=== PATIENT | female | born 1975 | race Caucasian/White ===

== ENCOUNTER 2018-07-30 03:45 | Observation (INO) ==
[2018-07-30] MEDS ORDERED: Aspirin 81 MG TAB.CHEW PO STA (05:02)
--- NOTE | 2018-07-30 05:03 | Emergency Department Note ---
Disposition Clinical Impression: Tobacco abuse Chest pain Qualifiers: Chest pain type: unspecified Qualified Code(s): R07.9 - Chest pain, unspecified HTN (hypertension) Qualifiers: Hypertension type: essential hypertension Qualified Code(s): I10 - Essential (primary) hypertension Disposition: Admitted As Inpatient Condition: Good Time of Disposition: 05:45 General Adult HPI - General Chief complaint: ED Chest Pain Stated complaint: admit/AMA earlier Time Seen by Provider: 07/30/18 04:39 Source: patient Limitations: no limitations Nursing Notes Reviewed: Yes Vital Signs Reviewed: Yes - History of Present Illness HPI Narrative: 43-year-old female who presents emergency department with complaints of chest tightness. She was seen earlier in this emergency department for similar complaints and was told that she would benefit from admission for further cardiac evaluation but she left AGAINST MEDICAL ADVICE. She was then sent to long term where she continued to have the chest tightness and therefore requested return to the emergency department. The patient has never had any cardiac disease previously but she does have a history of smoking, hypertension, diabetes. Patient denies any significant shortness of breath, vomiting, hematemesis, weight loss, abdominal pain, back pain, headache, visual changes. Pain Scale: 5 - Related Data Allergies Allergy/AdvReac Type Severity Reaction Status Date / Time Penicillins Allergy See Verified 07/29/18 21:08 Comments sulfamethoxazole Allergy See Verified 07/29/18 21:08 [From Bactrim] Comments trimethoprim [From Bactrim] Allergy See Verified 07/29/18 21:08 Comments steroids Allergy See Uncoded 07/29/18 21:08 Comments Review of Systems: ROS per history of present illness, all other systems reviewed and negative or normal. All systems ED: reviewed and negative except as stated. Review of Systems: As Per HPI Past Medical History - Past Medical History Medical history: Reports: diabetes, hypertension Psychiatric history: Reports: anxiety - Social History Smoking Status: Current every day smoker Smokeless Tobacco Status: No Alcohol use: Reports: none Drug use: Reports: none Physical Exam General: Conversant. No apparent distress. Follow commands. Appears stated age. Neck: No JVD. Trachea midline. Neck supple. Eyes: PERRL. No scleral icterus. HENT: Normocephalic and atraumatic. Moist mucus membranes. Cardiovascular: Regular rate and rhythm. Normal S1 and S2. No murmurs appreciated. Normal capillary refill. Extremities well perfused with 2+ distal pulses bilaterally. No edema. Pulmonary: Normal and equal breath sounds bilaterally, anteriorly and posteriorly. No wheezes, rales, or rhonchi. Not in respiratory distress. Speaks in full sentences. Abdomen: Soft, nondistended, and tontender. No bruits or masses. No guarding. Neuro: Alert and oriented x3. No slurred speech. No focal deficits noted. Skin: No rashes noted on visualized skin. Musculoskeletal: No bony abnormalities visualized. Moves all extremities. Psych: Normal mood. Pleasant. Makes appropriate eye contact. - General Limitations: no limitations General appearance: alert Course Vital Signs Temperature 96 F L 07/30/18 04:40 Pulse Rate 58 07/30/18 04:40 Respiratory Rate 18 07/30/18 04:40 Blood Pressure 146/66 07/30/18 04:40 O2 Sat by Pulse Oximetry 100 07/30/18 04:40 Temperature 96 F L 07/30/18 04:40 Pulse Rate 58 07/30/18 04:40 Respiratory Rate 18 07/30/18 04:40 Blood Pressure 146/66 07/30/18 04:40 O2 Sat by Pulse Oximetry 100 07/30/18 04:40 Oxygen Delivery Oxygen Delivery Room Air Medical Decision Making - MDM Narrative Medical decision making narrative: 43-year-old female with history of hypertension, diabetes and smoking who presents the emergency department for reevaluation of her chest pain. She was s een for this earlier less than 12 hours ago in this emergency department and at that time was recommended admission. At that point she climbed and left AGAINST MEDICAL ADVICE. She came back as her symptoms persisted with chest tightness. Given the patient has poor follow-up, increased risk factors and ongoing chest pain did evaluate with EKG and repeat troponin. EKG shows normal sinus rhythm w ithout acute ischemic changes when compared with prior. Troponin less than 0.03. At this point the patient is willing to stay for further ACS evaluation. Discussed case with on-call hospitalist Dr. Mcgowan who agrees with plan for admission and accepts the patient to the inpatient service. Patient agrees with and understands course of treatment plan including plan for admission. All questions answered. - Medical Records Medical records reviewed: Yes I reviewed the patient's medical records. - Lab Data Lab results reviewed: Yes I reviewed the patient's lab results. Lab Results 07/30/18 Range/Units 05:02 Troponin I < 0.03 (< 0.04) ng/mL - Radiology Data Radiology results reviewed: Yes I reviewed the patient's radiology results. - EKG Data EKG #1 EKG attestation: Yes I reviewed and interpreted this EKG. EKG results narrative: Normal sinus rhythm rate of 61. Normal axis. Normal intervals. No acute ischemic ST or T-wave abnormalities. When compared with prior from 07/29/18 at 2233 there are no significant changes.
--- NOTE | 2018-07-30 05:57 | Emergency Department Note ---
Disposition Clinical Impression: Tobacco abuse Chest pain Qualifiers: Chest pain type: unspecified Qualified Code(s): R07.9 - Chest pain, unspecified HTN (hypertension) Qualifiers: Hypertension type: essential hypertension Qualified Code(s): I10 - Essential (primary) hypertension Disposition: Admitted As Inpatient Condition: Good Time of Disposition: 05:45 General Adult HPI - General Chief complaint: ED Chest Pain Stated complaint: admit/AMA earlier Time Seen by Provider: 07/30/18 04:39 Source: patient Limitations: no limitations Nursing Notes Reviewed: Yes Vital Signs Reviewed: Yes - History of Present Illness Pain Scale: 5 - Related Data Allergies Allergy/AdvReac Type Severity Reaction Status Date / Time Penicillins Allergy See Verified 07/29/18 21:08 Comments sulfamethoxazole Allergy See Verified 07/29/18 21:08 [From Bactrim] Comments trimethoprim [From Bactrim] Allergy See Verified 07/29/18 21:08 Comments steroids Allergy See Uncoded 07/29/18 21:08 Comments Past Medical History - Past Medical History Medical history: Reports: diabetes, hypertension Psychiatric history: Reports: anxiety - Social History Smoking Status: Current every day smoker Smokeless Tobacco Status: No Alcohol use: Reports: none Drug use: Reports: none Physical Exam - General Limitations: no limitations General appearance: alert Course Vital Signs Temperature 96 F L 07/30/18 04:40 Pulse Rate 58 07/30/18 04:40 Respiratory Rate 18 07/30/18 04:40 Blood Pressure 146/66 07/30/18 04:40 O2 Sat by Pulse Oximetry 100 07/30/18 04:40 Temperature 97.9 F 07/30/18 06:37 Pulse Rate 61 07/30/18 06:37 Respiratory Rate 16 07/30/18 06:37 Blood Pressure 131/68 07/30/18 06:37 O2 Sat by Pulse Oximetry 99 07/30/18 06:37 Oxygen Delivery Oxygen Delivery Room Air Medical Decision Making - Medical Records Medical records reviewed: Yes I reviewed the patient's medical records. - Lab Data Lab results reviewed: Yes I reviewed the patient's lab results. Lab Results 07/30/18 Range/Units 05:02 Troponin I < 0.03 (< 0.04) ng/mL - EKG Data EKG #1 EKG attestation: Yes I reviewed and interpreted this EKG. EKG results narrative: EKG shows a normal sinus rhythm with ventricular rate of 61. No significant ST segment elevation or depression. No arrhythmia or ectopy. Normal EKG. Attestation Statement - Attestation Attestation: I, Brian Fitzgerald MD, personally evaluated this patient and discussed their management with the resident physician. I reviewed the resident's note and agree with the documented findings, medical decision making, and plan of care. I reviewed the residents documentation and agree with the residents assessment and plan of care. I have personally had face to face time with the patient. I personally supervised and was present for the capps/critical portions of the following procedures completed by the resident: EKG interpretation. 43-year-old female persisted emergency department with complaint of mid substernal chest pressure which started about 12 hours prior to arrival. Patient was seen here in the emergency department last evening for the same complaint. She had a workup at that time with a negative troponin. They recommended hospital admission but patient refused and left AMA. She returns now stating that the pain just will not go away. It has not gotten worse. She is diabetic and has a history of hypertension. On examination patient is a well-developed well-nourished well-appearing female in no acute distress. She is alert and oriented 3. There is no cyanosis or diaphoresis. Chest is nontender to palpation. Breath sounds are clear and equal bilaterally. Heart regular rate and rhythm. Abdomen soft and nontender with normal bowel sounds. EKG shows a normal sinus rhythm with ventricular rate of 61. No significant ST segment elevation or depression. No arrhythmia or ectopy. Normal EKG. troponin normal. The hospitalist, Dr. Mcgowan, was consulted and accepted admission of the p [facility].
[2018-07-30] MEDS ORDERED: Nitroglycerin 0.4 MG TAB.SUBL SL PRN (07:24)
--- NOTE | 2018-07-30 07:44 | Internal Med History&Physical ---
Date of Encounter: 07/30/18 Time of Encounter: 07:38 Internal Medicine - H&P: HPI Chief complaint: chest pain Admitted From: Home Plans for Post Hospital Care: Home History of present illness: Ms. Landry is a 43 year old female who has history of hypertension diabetes and tobacco abuse presenting emergency room for chest pain. Chest pain started 12 hours ago, located to left chest, pressure-like, 4 out of 10, last for 10 minutes associated with sweating. She denies palpation dizziness shortness of breath, no radiations. The chest pain is nonexertional. Patient was offered admission yesterday but she left AMA and she came back to having persistent chest pain, patient agrees to stay for chest pain workup. He emergency room she had lab study done which showed anemia, negative troponin, negative chest x-ray, EKG did not show any ST elevation or depression. Patient does have risk factor for hypertension diabetes tobacco abuse, no family history of premature CAD. Patient is going to be admitted for stress test, echocardiogram follow-up serous troponin EKG. Also she has significant microcytic anemia, we will do anemia workup check iron studies, B12 folic acid and stool occult blood. Past Med Surg Social Fam HX - Past Medical History Medical history: diabetes, hypertension Psychiatric history: anxiety - Past Surgical History Surgical History: Additional surgical history: throat surgery - Social History Smoking Status: Current every day smoker Packs per day: 1/2 Smokeless Tobacco Status: No Alcohol use: none Drug use: none Internal Medicine - H&P: Meds Insulin ASPART [Novolog Flexpen] 100 unit SQ 07/30/18 [History] Lisinopril [Zestril] 20 mg PO DAILY 07/30/18 [History] Allergy/AdvReac Type Severity Reaction Status Date / Time Penicillins Allergy See Verified 07/29/18 21:08 Comments sulfamethoxazole Allergy See Verified 07/29/18 21:08 [From Bactrim] Comments trimethoprim [From Bactrim] Allergy See Verified 07/29/18 21:08 Comments steroids Allergy See Uncoded 07/29/18 21:08 Comments All Systems PM: A 10-system review of systems was performed and is negative for pertinent findings except as documented above in the HPI. - Constitutional Vitals: Temp Pulse Resp BP Pulse Ox 97.9 F 61 16 131/68 99 07/30/18 06:37 07/30/18 06:37 07/30/18 06:37 07/30/18 06:37 07/30/18 06:37 General appearance: Present: A&O X 3, pleasant, answers questions appropriately Exam: CONSTITUTIONAL: Patient appears as an age appropriate female well developed, in no acute distress. EYES Clear sclerae, bilateral pupils are equal, reactive to light and accommodation. Extraocular movements are intact RESPIRATORY: No accessory muscle use, bilateral reduced breath sounds to auscultation, no wheezing, no crackles/rales. CARDIOVASCULAR: Regular heart rate, normal S1 and S2, no murmurs GASTROINTESTINAL: bowel sounds present, soft, no tenderness. No h epatosplenomegaly. No bilateral CVA tenderness MUSCULOSKELETAL: Joints in normal range of motion, no clubbing, no edema, no cyanosis. Bilateral peripheral pulses 2+ LYMPHATIC no lymphadenopathy in neck, groin and axilla bilaterally, no thyromegaly. NEUROLOGIC: CN II to XII are grossly intact, no focal neurological deficit. Deep tendon reflexes 2+ bilaterally. Normal light touch sensation to upper and lower extremity PSYCHIATRIC: Oriented x3, with good insight, mood is euthymic. No hallucinations or delusions. SKIN: Skin warm and dry, no rashes, no open wound. Internal Med - H&P Results - Labs Labs: Cardiac Enzymes 07/30/18 Range/Units 05:02 Troponin I < 0.03 (< 0.04) ng/mL - Summary of Assessment and Plan Summary of Assessment and Plan: This is a 43 year old female who has history of hypertension diabetes tobacco abuse presenting emergency room for on and off left-sided chest pressure over last 12 hours, she had her first negative troponin negative EKG chest x-ray. Patient's chest pain is not exertional we will admit for chest pain workup. Due to multiple risk factors 1. chest pain atypical, but due to multiple risk factors, will follow up trop EKG, check TTE and stress test, check lipids and A1c, continue aspirin, when necessary nitroglycerin, check D-dimer to r/o PE 2 hypertension continue lisinopril 20 mg once daily, clonidine 0.1 tid 3 insulin-dependent diabetes we will check A1c place insulin sliding scale 4 tobacco dependent smoking cessation discussed patient declined a nicotine patch 5. Severe microcytic anemia will check iron studies, B12 and folic acid stool ocular brother test 6. DVT prophylasix heparin SC - Time Spent With Patient Total time spent is greater than 50% in coordination of care (as documented) at patient's floor/unit and/or counseling patient: Greater than 35 minutes
--- NOTE | 2018-07-30 08:13 | Electrocardiograph Report ---
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
[2018-07-30 08:22] LABS: % Iron Saturation 4 % (15-50); Iron 15 mcg/dL (50-170); Transferrin 262 mg/dL (203-362); Troponin I < 0.03 ng/mL (< 0.04)
[2018-07-30] MEDS: Lisinopril 20 MG TABLET PO SCH (09:19)
[2018-07-30] MEDS: cloNIDine HCl 0.1 MG TABLET PO SCH ×3 (09:19→21:01)
[2018-07-30] MEDS: Aspirin 81 MG TAB.CHEW PO SCH (09:19)
[2018-07-30] MEDS: *HR* Heparin 5,000 UNIT/ML VIAL SQ SCH ×2 (12:23→21:05)
[2018-07-30] MEDS: Insulin LISPRO 300 UNITS/3 ML VIAL SQ SCH ×2 (12:32→17:35)
[2018-07-30] MEDS ORDERED: Dextrose Gel 15 GM/37.5 ML TUBE PO PRN ×2 (14:37)
[2018-07-30] MEDS ORDERED: *HR* Dextrose 50 % in Water (Syg) 50 ML SYRINGE IVP PRN (14:37)
[2018-07-30] MEDS ORDERED: D5% in Water 1,000 ML IVC PRN (14:37)
[2018-07-30] MEDS ORDERED: Acetaminophen 325 MG TABLET PO ONE (21:29)
[2018-07-31] MEDS: Insulin LISPRO 300 UNITS/3 ML VIAL SQ SCH ×3 (00:50→17:03)
--- NOTE | 2018-07-31 05:04 | Event Note ---
Date of Encounter: 07/30/18 Time of Encounter: 21:00 Alerted by patient's nurse the patient was nothing by mouth and was unsure why. Reviewed patient's chart to find her stress test results from today which showed although submaximal HR achieved for abnormal ECG changes (1-[address] depression) in the inferior and lateral leads suggestive of ischemia at the level of HR attained (71%). Page Dr. Elise who was front office representative for Cardiology and discussed this pt. w/recommendation to allow the pt. to eat now and keep NPO at midnight for possible heart catheterization in the a.m. No Cardiology consult placed, so Cardiology consult ordered and confirmed w/Dr. Elise via [employer]. I appreciate the recommendations and consult as always. Nurse instructed to continue monitoring this pt. very closely and alert me immediately of any adverse changes. NPO ordered for midnight.
[2018-07-31] MEDS: *HR* Heparin 5,000 UNIT/ML VIAL SQ SCH ×2 (05:11→17:03)
[2018-07-31 07:55] LABS: Prothrombin Time 11.2 Seconds (9.4-12.1)
[2018-07-31 08:06] LABS: Albumin 3.4 g/dL (3.5-5.7); Albumin/Globulin Ratio 1.1 (1.1-2.2); Bilirubin,Indirect 0.2 mg/dL (0.0-1.2); Bilirubin,Total 0.2 mg/dL (0.3-1.0); Chol/HDL Ratio 4.5 (0-4.9); Total Protein 6.4 g/dL (6.4-8.9)
[2018-07-31 08:19] LABS: Estimated Average Glucose 229 mg/dl; Hemoglobin A1C 9.6 %
[2018-07-31 08:27] LABS: Folate 14.5 ng/mL (3.0-16.0)
[2018-07-31 08:31] LABS: Basophils % 0.3 %
[2018-07-31 08:33] LABS: Alanine Aminotransferase 10 Units/L (7-52); Albumin 3.2 g/dL (3.5-5.7); Aspartate Amino Transferase 15 Units/L (13-39); BUN/Creatinine Ratio 18 (6-26); Bilirubin,Total 0.1 mg/dL (0.3-1.0); Blood Urea Nitrogen 18 mg/dL (6-20); Carbon Dioxide 22 mEq/L (23-29); Chloride 110 mEq/L (98-107); Globulin 3.1 g/dL (2.4-3.5); Glucose 175 mg/dL (70-105); Magnesium 2.2 mg/dL (1.6-2.6); Osmolality,Calculated 298 (280-300); Potassium 4.5 mEq/L (3.5-5.1); Sodium 141 mEq/L (136-145); Total Protein 6.3 g/dL (6.4-8.9); eGFR For African Americans > 60 (> 60); eGFR For Non-African Americans > 60 (> 60)
[2018-07-31 08:34] LABS: Eosinophils # 0.1 K/mcL (0.0-0.6); Eosinophils % 1.1 %; Hematocrit 30.8 % (35.3-44.9); Hemoglobin 8.8 g/dL (11.5-15.4); Immature Granulocytes % 0.2 % (0-4); Immature Platelets 8.4 % (1.1-6.1); Lymphocytes % 30.9 %; Mean Corpuscular HGB Conc 28.6 g/dL (31.6-35.5); Mean Corpuscular Hemoglobin 22.9 pg (28.0-33.3); Mean Platelet Volume 11.8 fL (9.4-12.4); Monocytes # 0.5 K/mcL (0.0-1.3); Monocytes % 7.8 %; Neutrophils # 3.9 K/mcL (1.6-8.9); Platelet Count 219 K/mcL (140-400); Red Blood Count 3.85 M/mcL (3.82-4.97); Red Cell Distribution Width 18.7 % (11.5-14.5); Segmented Neutrophils % 59.7 %; White Blood Count 6.5 K/mcL (4.3-11.1)
[2018-07-31 08:38] LABS: Anisocytosis 1+ (Not Present); Calcium 8.7 mg/dL (8.6-10.3); Platelet Clumps Few (Not Present); Platelet Estimate Normal (Normal)
[2018-07-31 08:39] LABS: Alkaline Phosphatase 80 Units/L (34-104)
--- NOTE | 2018-07-31 09:54 | Cardiology Consult Note ---
Date of Encounter: 07/31/18 Time of Encounter: 09:51 Assessment and Plan (1) Abnormal stress electrocardiogram test Status: Acute Patient with risk factors for coronary artery disease namely cigarette smoking and diabetes, with equivocal exercise stress test, obtain pharmacological nuclear stress test. If negative patient may be discharged to follow up with cardiology as outpatient (2) Chest pain Status: Acute Resolved. Obtain pharmacological nuclear stress test today Qualifiers: Chest pain type: unspecified Qualified Code(s): R07.9 - Chest pain, unspecified (3) Hypertension Status: Acute Continue lisinopril and clonidine. We will replace clonidine with first-line antihypertensive in the outpatient setting. Qualifiers: Hypertension type: essential hypertension Qualified Code(s): I10 - Essential (primary) hypertension (4) Tobacco abuse Status: Acute Encouraged to quit smoking Discussion w patient/family: The assessment and plan as outlined above was discussed with the patient and/or family members who expressed understanding and agreement. All questions were answered. Thank you for involving us in the care of your patient. Please call with any questions. History of Present Illness Consult date: 07/31/18 History of present illness: Ms. Landry is a 43 year old female with history of hypertension, diabetes and tobacco abuse, microcytic anemia, admitted for a non exertional, non radiating left sided chest pain described as pressure-like, 4 out of 10, last for 10 minutes associated with sweating. She denies palpitation or shortness of breath, no radiations. She received exercise stress test yesterday which was suboptimal due to inability to achieve target heart rate. However there were 1- [address] T depressions with exercise. Past Med Surg Social Fam HX - Past Medical History Medical history: diabetes, hypertension Psychiatric history: anxiety - Past Surgical History Surgical History: Additional surgical history: throat surgery - Social History Smoking Status: Current every day smoker Packs per day: 1/2 Smokeless Tobacco Status: No Alcohol use: none Drug use: none Medications and Allergies Clonidine TID 07/30/18 [History] Insulin ASPART [Novolog Flexpen] 0 unit SQ TIDWM 07/30/18 [History] Lisinopril [Zestril] 20 mg PO DAILY 07/30/18 [History] Allergy/AdvReac Type Severity Reaction Status Date / Time Penicillins Allergy See Verified 07/29/18 21:08 Comments sulfamethoxazole Allergy See Verified 07/29/18 21:08 [From Bactrim] Comments trimethoprim [From Bactrim] Allergy See Verified 07/29/18 21:08 Comments steroids Allergy See Uncoded 07/29/18 21:08 Comments All Systems Review: The remainder of the systems were reviewed and are negative - Constitutional Constitutional: no anorexia - EENT Eyes: no blurred vision - Cardiovascular Cardiovascular: as per HPI, chest pain at rest, no chest pain with exertion, no claudication, no palpitations, no syncope - Respiratory Respiratory: no cough - Gastrointestinal Gastrointestinal: no abdominal pain - Musculoskeletal Musculoskeletal: no muscle weakness - Integumentary Integumentary: no unusual bruising - Neurological Neurological: no abnormal speech - Hematological/Lymphatic Hematologic/Lymphatic: no easy bleeding Physical Examination Vital Signs, Last 4 Hours Temp Pulse Resp BP Pulse Ox 07/31/18 06:45 98.1 F 64 15 129/61 97 General: Conversant HEENT: Atraumatic Neck: No JVD Cardiac: Reg Rate and Rhythm, Normal S1 and S2, No Murmur Lungs: Normal Breath Sounds, No Wheeze, Rales, Rhonchi Neuro: Alert and responsive, No focal deficits noted Abdomen: Soft Extremities: No Edema Results 07/31/18 06:56 07/31/18 06:56 Lab Results 07/30/18 07/30/18 07/31/18 14:51 19:20 06:56 WBC 6.5 Hgb 8.8 L Hct 30.8 L Plt Count 219 INR Sodium Potassium Chloride Carbon Dioxide BUN Creatinine Glucose Calcium Magnesium Total Bilirubin AST ALT Alkaline Phosphatase Troponin I < 0.03 < 0.03 07/31/18 07/31/18 07/31/18 06:56 06:56 06:56 WBC Hgb Hct Plt Count INR 1.0 Sodium 141 Potassium 4.5 Chloride 110 H Carbon Dioxide 22 L BUN 18 Creatinine 0.99 Glucose 175 H Calcium 8.7 Magnesium 2.2 Total Bilirubin 0.1 L 0.2 L AST 15 13 ALT 10 11 Alkaline Phosphatase 80 82 Troponin I - EKG Interpretation EKG results cardiology: personally reviewed, sinus rhythm Consult Discharge Plan - Plan Instructions: Angina (GEN), Chest Pain (GEN), How to Stop Smoking (GEN), Cigarette Smoking and Your Health (GEN), How to Stop Smoking, Machine Hoop Maker Helper (GEN) Referrals: NONE,PCP [Primary Care Provider] - Samuel Elise MD [Non-Partnered Physician] -
[2018-07-31] MEDS ORDERED: Regadenoson 0.4 MG/5 ML SYRINGE IVP ONE (10:10)
[2018-07-31] MEDS: Lisinopril 20 MG TABLET PO SCH (10:12)
[2018-07-31] MEDS: cloNIDine HCl 0.1 MG TABLET PO SCH ×2 (10:12→17:03)
[2018-07-31] MEDS: Aspirin 81 MG TAB.CHEW PO SCH (10:12)
[2018-07-31 12:19] LABS: Amphetamine Screen,Urine Negative ng/mL (Cutoff=1000); Barbiturate Screen,Urine Negative ng/mL (Cutoff=200); Benzodiazepines Screen,Urine Negative ng/mL (Cutoff=200); Cannabinoid Screen,Urine Negative ng/mL (Cutoff = 50); Cocaine Screen,Urine Negative ng/mL (Cutoff= 300); Opiate Screen,Urine Negative ng/mL (Cutoff=300); Phencyclidine Screen,Urine Negative ng/mL (Cutoff=25)
[2018-07-31 14:15] VITALS: BP 143/73
--- NOTE | 2018-07-31 16:16 | Discharge Summary ---
Orders not resulted at time of discharge: Pending orders 07/30/18 07:24 ECG 12 lead ECG [ECG] Stat 07/31/18 11:00 NM kayla perf SPECT multi [NM] Routine Date of Encounter: 07/31/18 Time of Encounter: 16:12 Hospital course: This is a 43 year old female who has history of hypertension diabetes tobacco abuse presenting emergency room for on and off left-sided chest pressure over last 12 hours, she had her first negative troponin negative EKG chest x-ray. Patient's chest pain is not exertional we will admit for chest pain workup. Due to multiple risk factors 1. chest pain atypical, but due to multiple risk factors, negative trop EKG, normal TTE, but had abnormal stress ECG, cardiology was consulted last night, had NUC stress test this morning which is negative for ischemia, cardiology is ok to discharge. negative D-dimer, lipids is ok. 2 hypertension continue lisinopril 20 mg once daily, clonidine 0.1 tid 3 insulin-dependent diabetes we will check A1c place insulin sliding scale 4 tobacco dependent smoking cessation discussed patient declined a nicotine patch 5. Severe microcytic anemia will check iron studies, B12 and folic acid stool ocular brother test 6. DVT prophylasix heparin SC - Time Spent with Patient Total time spent providing and/or coordinating discharge services: Time spent: Less than 30 minutes - Discharge Medications Prescriptions: Continued Lisinopril [Zestril] 20 mg PO DAILY Insulin ASPART [Novolog Flexpen] 0 unit SQ TIDWM Clonidine TID Home Medications: Clonidine TID 07/30/18 [History] Insulin ASPART [Novolog Flexpen] 0 unit SQ TIDWM 07/30/18 [History] Lisinopril [Zestril] 20 mg PO DAILY 07/30/18 [History] Allergies/Adverse Reactions: Allergy/AdvReac Type Severity Reaction Status Date / Time Penicillins Allergy See Verified 07/29/18 21:08 Comments sulfamethoxazole Allergy See Verified 07/29/18 21:08 [From Bactrim] Comments trimethoprim [From Bactrim] Allergy See Verified 07/29/18 21:08 Comments steroids Allergy See Uncoded 07/29/18 21:08 Comments Date of admission: 07/30/18 05:42 Primary care physician: PCP NONE Consults: 07/30/18 21:31 Consult to Cardiology [CONS] Routine Comment: Consulting Provider: Cardiology Geetha Reason for Consult: Abnormal stress test results today. Call Completed: Yes - Constitutional Vitals: Temp Pulse Resp BP Pulse Ox 97.7 F 68 15 143/73 99 07/31/18 14:12 07/31/18 14:12 07/31/18 14:12 07/31/18 14:12 07/31/18 14:12 General appearance: Present: A&O X 3, pleasant, answers questions appropriately Exam: CONSTITUTIONAL: Patient appears as an age appropriate female well developed, in no acute distress. EYES Clear sclerae, bilateral pupils are equal, reactive to light and acco mmodation. Extraocular movements are intact RESPIRATORY: No accessory muscle use, bilateral reduced breath sounds to auscultation, no wheezing, no crackles/rales. CARDIOVASCULAR: Regular heart rate, normal S1 and S2, no murmurs GASTROINTESTINAL: bowel sounds present, soft, no tenderness. No hepatosplenomegaly. No bilateral CVA tenderness MUSCULOSKELETAL: Joints in normal range of motion, no clubbing, no edema, no cyanosis. Bilateral peripheral pulses 2+ LYMPHATIC no lymphadenopathy in neck, groin and axilla bilaterally, no thyromegaly. NEUROLOGIC: CN II to XII are grossly intact, no focal neurological deficit. Deep tendon reflexes 2+ bilaterally. Normal light touch sensation to upper and lower extremity PSYCHIATRIC: Oriented x3, with good insight, mood is euthymic. No hallucinations or delusions. SKIN: Skin warm and dry, no rashes, no open wound. - Patient Status Disposition: Home, Self-Care Condition: Good Functional capacity at discharge: independent ambulation Overall status at discharge: patient is back to baseline - Discharge Instructions Follow Up With: NONE,PCP [Primary Care Provider] -
--- NOTE | 2018-08-01 13:22 | Electrocardiograph Report ---
[place] [id number] Test Date: 2018-07-30 Pat Name: Katelynn Landry Department: 115 Room: 3A55 Gender: F [employer]: ANNE-MARIE : 1975 Requested By: Mary Clarke Order Number: [id number] Reading MD: Samuel Elise Measurements Intervals Eighty Four Rate: 59 P: 15 OK: 159 QRS: 48 QRSD: 106 T: 55 QT: 483 QTc: 483 Interpretive Statements SINUS BRADYCARDIA PROLONGED QT INTERVAL Electronically Signed On 08-01-2018 13:20:49 EDT by Samuel Elise
== END 2018-07-31 17:45 | disposition home or self-care (01) ==
LOC: EMEROOARM 03:45 → 3ANU 03:45 → SUATTDRO 05:42 → MERGE 05:42 → 3ANU 06:00
PROVIDERS: ADMIT Internal Medicine; ATTEND Hospitalist